=== PATIENT | male | born 1950 | race Caucasian/White ===

== ENCOUNTER → 2017-01-16 | Outpatient (CLI) | payer MEDICARE ==
--- NOTE | 2017-01-16 10:27 | RADIOLOGY REPORT (SQ) ---
EXAM DESCRIPTION: CT LUNG CANCER SCREENING COMPLETED DATE/TIME: 01/16/2017 10:04 am REASON FOR STUDY: NICOTINE DEPENDENCE (F17.200) F17.200 NICOTINE DEPENDENCE, UNSPECIFIED, UNCOMPLIC ATED Has the patient had a Chest CT scan within the past year? No. Was the patient offered tobacco cessation counseling? Yes. Was the patient engaged in shared decision making for this test? Yes. Does the patient have signs or symptoms of Lung Cancer? No. Is the patient a smoker? Yes. How many packs per year? 365. How many years since quitting smoking? Current smoker. Patients age: 66. COMPARISON: None. TECHNIQUE: Low Dose CT scan performed of the chest without intravenous contrast for purposes of scre ening for lung cancer. Images reviewed with lung, soft tissue and bone windows. Reconstructed coron al and sagittal MPR images reviewed. All images stored on PACS. All CT scanners at this facility use dose modulation, iterative reconstruction, and/or weight based d osing when appropriate to reduce radiation dose to as low as reasonably achievable (ALARA). [facility]: Dose Right [facility]: CareDose [facility]: Dose Right [facility]: Teradose 4D [facility]: iCracked RADIATION DOSE: Up-to-date CT equipment and radiation dose reduction techniques were employed. CTDIv ol: 2.1 mGy. DLP: 85 mGy-cm. mGy. . LIMITATIONS: None FINDINGS: LUNGS AND PLEURA: No masses or nodules. No pleural effusions or calcifications. No pne umothorax. No scarring or interstitial changes. HILAR AND MEDIASTINAL STRUCTURES: No identified masses. No abnormal nodes. HEART AND VASCULAR STRUCTURES: No aortic aneurysm. No pericardial effusion. No cardiac devices. CORONARY ARTERY CALCIFICATIONS: Mild to moderate calcifications. UPPER ABDOMEN, THYROID, BONES, OTHER SOFT TISSUES: No significant findings. IMPRESSION: NO SIGNIFICANT FINDING IN THE LUNGS ON NON-CONTRASTED CHEST CT. NO OTHER CLINICALLY SIGNIFICANT/POTENTIALLY CLINICALLY SIGNIFICANT FINDINGS LUNGRADS: LUNGRADS: 1 NEGATIVE. NO NODULES, OR DEFINITELY BENIGN NODULES MODIFIER: NONE RECOMMENDATION: Continue annual screening with LDCT in 12 months. COMMENT: CRITERIA: No lung nodules. Nodules with specific calcifications: Complete, central, popcorn, concentric rings and fat containin g nodules. TECHNICAL DOCUMENTATION: JOB ID: [id number] Quality ID # [id number]: Final reports with documentation of one or more dose reduction techniques (e.g., Au tomated exposure control, adjustment of the mA and/or kV according to patient size, use of iterative reconstruction technique) 2010 [employer]
== END ==
LOC: RAD 09:23
PROVIDERS: ATTEND Family Medicine
DX: F17.200 Nicotine dependence, unspecified, uncomplicated (principal)
CPT/HCPCS: G0297

== ENCOUNTER 2017-02-15 04:27 | Inpatient (IN) | payer MEDICARE ==
[2017-02-15 04:58] LABS: ABSOLUTE LYMPHOCYTES (AUTO) 0.6 10^3/uL (0.5-4.7); ABSOLUTE MONOCYTES (AUTO) 0.9 10^3/uL (0.1-1.4); ABSOLUTE NEUT (AUTO) 4.6 10^3/uL (1.7-8.2); BASOPHILS % (AUTO) 0.4 % (0-2); EOSINOPHILS % (AUTO) 0.1 % (0-6); HEMATOCRIT 47.9 % (37.9-51.0); HEMOGLOBIN 15.7 g/dL (13.5-17.0); HGB HCT DIFFERENCE -0.8; LYMPHOCYTES % (AUTO) 9.6 % (13-45); MEAN CORPUSCULAR HEMOGLOBIN 26.5 pg (27.0-33.4); MEAN CORPUSCULAR HGB CONC 32.7 g/dL (32.0-36.0); MEAN CORPUSCULAR VOLUME 81 fl (80-97); MONOCYTES % (AUTO) 15.2 % (3-13); RED BLOOD COUNT 5.91 10^6/uL (4.35-5.55); RED CELL DISTRIBUTION WIDTH 15.6 % (11.5-14.0); SEGMENTED NEUTROPHILS % (AUTO) 74.7 % (42-78); WHITE BLOOD COUNT 6.2 10^3/uL (4.0-10.5)
--- NOTE | 2017-02-15 05:02 | ER Document Report ---
ED General - General Chief Complaint: Fall Stated Complaint: FALL/LEG NUMBNESS Time Seen by Provider: 02/15/17 05:01 TRAVEL OUTSIDE OF THE [place] IN LAST 30 DAYS: No - Related Data Allergies/Adverse Reactions: No Known Allergies Allergy (Verified 02/15/17 04:27) Past Medical History - Social History Family History: Reviewed & Not Pertinent - Past Medical History Cardiac Medical History: Reports: Hx Heart Attack, Hx Hypertension Renal/ Medical History: Denies: Hx Peritoneal Dialysis Past Surgical History: Reports: Hx Abdominal Surgery - Gastric bypass, Hx Neurologic Surgery - laminectomy, Hx Orthopedic Surgery - carpel tunnel - Immunizations Hx Diphtheria, Pertussis, Tetanus Vaccination: Yes Physical Exam - Vital signs Vitals: Pulse Resp BP Pulse Ox 57 L 20 83/63 L 98 02/15/17 04:28 02/15/17 04:28 02/15/17 04:28 02/15/17 04:28 Course - Vital Signs Vital signs: Temp Pulse Resp BP Pulse Ox 57 L 20 83/63 L 98 02/15/17 04:28 02/15/17 04:28 02/15/17 04:28 02/15/17 04:28 - Laboratory Result Diagrams: 02/15/17 04:46 02/15/17 04:46 Laboratory results interpreted by me: 02/15/17 02/15/17 02/15/17 04:46 04:46 04:46 RBC 5.91 H MCH 26.5 L RDW 15.6 H Lymphocytes % 9.6 L Monocytes % 15.2 H VBG pCO2 VBG HCO3 Sodium 128.0 L Potassium 3.3 L Chloride 88 L BUN 54 H Creatinine 3.31 H Est GFR ( Amer) 23 L Est GFR (Non-Af Amer) 19 L Glucose 161 H Lactic Acid 2.9 H Direct Bilirubin 0.6 H 02/15/17 05:00 RBC MCH RDW Lymphocytes % Monocytes % VBG pCO2 30.5 L VBG HCO3 17.2 L Sodium Potassium Chloride BUN Creatinine Est GFR ( Amer) Est GFR (Non-Af Amer) Glucose Lactic Acid Direct Bilirubin - EKG Interpretation by Me Additional EKG results interpreted by me: 02/15/17 05:02 02/15/17 05:52
--- NOTE | 2017-02-15 05:20 | RADIOLOGY REPORT (SQ) ---
EXAM DESCRIPTION: CHEST SINGLE VIEW COMPLETED DATE/TIME: 02/15/2017 5:09 am REASON FOR STUDY: syncope COMPARISON: None. EXAM PARAMETERS: NUMBER OF VIEWS: One view. TECHNIQUE: Single frontal radiographic view of the chest acquired. RADIATION DOSE: NA LIMITATIONS: None. FINDINGS: LUNGS AND PLEURA: No opacities, masses or pneumothorax. No pleural effusion. MEDIASTINUM AND HILAR STRUCTURES: No masses. Contour normal. HEART AND VASCULAR STRUCTURES: Heart normal in size. Normal vasculature. BONES: No acute findings. Moderate disc desiccation. HARDWARE: None in the chest. OTHER: No other significant finding. IMPRESSION: NO ACUTE RADIOGRAPHIC FINDING IN THE CHEST. TECHNICAL DOCUMENTATION: JOB ID: [id number]
[2017-02-15 05:25] LABS: ALANINE AMINOTRANSFERASE 31 U/L (21-72); ALBUMIN 3.7 g/dL (3.5-5.0); ALKALINE PHOSPHATASE 60 U/L (38-126); ANION GAP 18 (5-19); ASPARTATE AMINO TRANSFERASE 35 U/L (17-59); BILIRUBIN,DIRECT 0.6 mg/dL (0.0-0.4); BLOOD UREA NITROGEN 54 mg/dL (7-20); CALCIUM 8.7 mg/dL (8.4-10.2); CARBON DIOXIDE 22 mmol/L (22-30); CHLORIDE 88 mmol/L (98-107); CREATINE KINASE 109 U/L (55-170); CREATININE RESULT 3.31 mg/dL (0.52-1.25); GLUCOSE 161 mg/dL (75-110); POTASSIUM 3.3 mmol/L (3.6-5.0); TOTAL PROTEIN 6.7 g/dL (6.3-8.2)
[2017-02-15 05:35] LABS: VENOUS BLOOD BASE EXCESS -6.6 mmol/L; VENOUS BLOOD HCO3 17.2 mmol/L (20-32); VENOUS BLOOD PCO2 30.5 mmHg (35-63); VENOUS BLOOD PH 7.37 (7.30-7.42)
[2017-02-15 05:37] LABS: CREATINE KINASE MB 1.79 ng/mL (<4.55)
[2017-02-15 05:41] LABS: TROPONIN I 0.047 ng/mL
[2017-02-15] MEDS: NORMAL SALINE 1000 ML 1,000 ML IV PRN ×7 (05:49→16:34)
--- NOTE | 2017-02-15 05:55 | ER Document Report ---
Doctor's Note Notes: 02/15/17 05:52 I performed a quick triage evaluation on the patient when he first arrived. Patient is hypotensive but clinically looks very well. He says he has been passing out 3 times today. I suspect his passing out is because he is hypotensive. He has had diarrhea now for a week. Says is watery. He has had no associated abdominal pain. No chest pain. He has pain in the back of his head and upper neck from falling. He denies any other injuries other than mild pain in his left hip. He is been able to walk without difficulty. He has no history of renal failure. His have history of coronary disease and has one stent that was placed several years ago. Patient denies any recent antibiotic use other than he took 2 antibiotics he had at home when he was having the diarrhea. He says he only took 2 pills. He is unsure what the antibiotic is. Otherwise he has not been on antibiotics in last 2 months. He had a fever of 104.6 on Sunday. His fever resolved by Sunday. 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 No dissection history. Does have a history of gastric bypass surgery. He does not drink alcohol. He does smoke. On exam the patient clinically looks very well. Despite his hypotension he looks very comfortable and is in no distress. On exam he does have some pain to palpation behind the back of his head. He does not have really any pain in his neck except at the very base of his occiput. He has no pain to palpation of his abdomen. I did do a FAST exam and there is no free fluid in his abdomen. I do not see pericardial effusion at this time. His chest x-ray is normal. We will give him IV fluids to help with rehydration. Laboratory evaluation shows some acute renal failure but the remainder of labs are pending. 02/15/17 05:55 EKG is reviewed and interpreted by me. EKG shows atrial fibrillation with a rate of [address] segment elevation or depression. No ischemic T-wave inversions. QRS duration is slightly prolonged. QTc interval is prolonged. No old EKG available for comparison.
--- NOTE | 2017-02-15 06:06 | ER Document Report ---
ED General - General Chief Complaint: Fall Stated Complaint: FALL/LEG NUMBNESS Time Seen by Provider: 02/15/17 05:01 Mode of Arrival: Medic Information source: Patient Notes: 67-year-old male presents with complaints of 3-4 day duration of diarrhea fever yesterday generalized weakness multiple falls. Patient found hypotensive on arrival. Notes temperature was 104.3 yesterday Patient denies any other complaints TRAVEL OUTSIDE OF THE [place] IN LAST 30 DAYS: No - HPI Onset: Last week Onset/Duration: Persistent Quality of pain: Achy Severity: Mild Pain Level: 1 Associated symptoms: Diarrhea, Weakness Exacerbated by: Denies Relieved by: Denies Similar symptoms previously: No Recently seen / treated by doctor: No - Related Data Allergies/Adverse Reactions: No Known Allergies Allergy (Verified 02/15/17 04:27) Past Medical History - Social History Smoking Status: Never Smoker Cigarette use (# per day): No Chew tobacco use (# tins/day): No Smoking Education Provided: No Family History: Reviewed & Not Pertinent - Past Medical History Cardiac Medical History: Reports: Hx Heart Attack, Hx Hypertension Renal/ Medical History: Denies: Hx Peritoneal Dialysis Past Surgical History: Reports: Hx Abdominal Surgery - Gastric bypass, Hx Neurologic Surgery - laminectomy, Hx Orthopedic Surgery - carpel tunnel - Immunizations Hx Diphtheria, Pertussis, Tetanus Vaccination: Yes Review of Systems - Review of Systems Notes: REVIEW OF SYSTEMS: CONSTITUTIONAL : Admits to fever EENT: Denies eye, ear, throat, or mouth pain or symptoms. Denies nasal or sinus congestion or discharge. Denies throat, tongue, or mouth swelling or difficulty swallowing. CARDIOVASCULAR: Denies chest pain. Denies palpitations or racing or irregular heart beat. Denies ankle edema. RESPIRATORY: Denies cough, cold, or chest congestion. Denies shortness of breath, difficulty breathing, or wheezing. GASTROINTESTINAL: Admits diarrhea GENITOURINARY: Denies difficulty urinating, painful urination, burning, frequency, blood in urine, or discharge. MUSCULOSKELETAL: Denies back or neck pain or stiffness. Denies joint pain or swelling. SKIN: Denies rash, lesions or sores. HEMATOLOGIC : Denies easy bruising or bleeding. LYMPHATIC: Denies swollen, enlarged glands. NEUROLOGICAL: Admits to weakness PSYCHIATRIC: Denies anxiety or stress. Denies depression, suicidal ideation, or homicidal ideation. ALL OTHER SYSTEMS REVIEWED AND NEGATIVE. Dictation was performed using [employer] voice recognition software PHYSICAL EXAMINATION: GENERAL: Overall ill-appearing male quite hypotensive HEAD: Atraumatic, normocephalic. EYES: Pupils equal round and reactive to light, extraocular movements intact, sclera anicteric, conjunctiva are normal. ENT: Nares patent, oropharynx clear without exudates. Moist mucous membranes. NECK: Normal range of motion, supple without lymphadenopathy LUNGS: Breath sounds clear to auscultation bilaterally and equal. No wheezes rales or rhonchi. HEART: tachycardic, irregular rate and rythm ABDOMEN: Soft, nontender, nondistended abdomen. No guarding, no rebound. No masses appreciated. Musculoskeletal: Normal range of motion, no pitting or edema. No cyanosis. NEUROLOGICAL: Cranial nerves grossly intact. Normal speech, normal gait. Normal sensory, motor exams PSYCH: Normal mood, normal affect. SKIN: Warm, Dry, poor turgor, no rashes or lesions noted. Physical Exam - Vital signs Vitals: Pulse Resp BP Pulse Ox 57 L 20 83/63 L 98 02/15/17 04:28 02/15/17 04:28 02/15/17 04:28 02/15/17 04:28 Course - Re-evaluation Re-evalutation: 02/15/17 06:25 Patient is noted to be hypotensive and acute renal failure, I believe this is all secondary to fluid loss from the diarrhea Patient continues to be hypotensive after fluid boluses, I expect him to be severely dehydrated 02/15/17 07:41 - Vital Signs Vital signs: Temp Pulse Resp BP Pulse Ox 57 L 13 71/58 L 93 02/15/17 04:28 02/15/17 05:46 02/15/17 05:46 02/15/17 05:46 - Laboratory Result Diagrams: 02/15/17 04:46 02/15/17 04:46 Laboratory results interpreted by me: 02/15/17 02/15/17 02/15/17 04:46 04:46 04:46 RBC 5.91 H MCH 26.5 L RDW 15.6 H Lymphocytes % 9.6 L Monocytes % 15.2 H VBG pCO2 VBG HCO3 Sodium 128.0 L Potassium 3.3 L Chloride 88 L BUN 54 H Creatinine 3.31 H Est GFR ( Amer) 23 L Est GFR (Non-Af Amer) 19 L Glucose 161 H Lactic Acid 2.9 H Direct Bilirubin 0.6 H 02/15/17 05:00 RBC MCH RDW Lymphocytes % Monocytes % VBG pCO2 30.5 L VBG HCO3 17.2 L Sodium Potassium Chloride BUN Creatinine Est GFR ( Amer) Est GFR (Non-Af Amer) Glucose Lactic Acid Direct Bilirubin - Diagnostic Test Radiology reviewed: Image reviewed, Reports reviewed - No acute abnormality Procedures - Central Line Right Internal jugular Time completed: 07:11 Consent obtained: Yes Central line pre-insertion: Sterile PPE donned, Betadine prep applied, Sterile drapes applied Central line size (Fr.): 13 Central line lumen type: Triple Anesthetic type: 1% Lidocaine mL's of anesthesia: 10 Ultrasound guided: Yes CM at insertion site: 3 Line secured with sutures: Yes Central line post-insertion: Blood return from lumens, Biopatch applied, Sutured , Sterile dressing applied, Position confirmed w/ CXR Number of attempts: 1 Complications: No Critical Care Note - Critical Care Note Total time excluding time spent on procedures (mins): 45 Comments: 45 minutes of critical care time spent in direct contact evaluating and reevaluating the patient, treating symptoms, reviewing labs and studies and speaking with family and consultants excluding any procedures Discharge - Discharge Clinical Impression: Weakness Diarrhea Qualifiers: Diarrhea type: unspecified type Qualified Code(s): R19.7 - Diarrhea, unspecified Hypotension Qualifiers: Hypotension type: unspecified hypotension type Qualified Code(s): I95.9 - Hypotension, unspecified Acute renal failure Qualifiers: Acute renal failure type: unspecified Qualified Code(s): N17.9 - Acute kidney failure, unspecified Condition: Fair Disposition: ADMITTED INPATIENT Admitting Provider: Hospitalist Unit Admitted: [facility]
--- NOTE | 2017-02-15 06:22 | RADIOLOGY REPORT (SQ) ---
EXAM DESCRIPTION: CT HEAD WITHOUT COMPLETED DATE/TIME: 02/15/2017 6:12 am REASON FOR STUDY: trauma COMPARISON: None. TECHNIQUE: Axial images acquired through the brain without intravenous contrast. Images reviewed wi th bone, brain and subdural windows. Images stored on PACS. All CT scanners at this facility use dose modulation, iterative reconstruction, and/or weight based d osing when appropriate to reduce radiation dose to as low as reasonably achievable (ALARA). [facility]: Dose Right [facility]: CareDose [facility]: Dose Right [facility]: Teradose 4D [facility]: dscovered RADIATION DOSE: Up-to-date CT equipment and radiation dose reduction techniques were employed. CTDIv ol: 64.6 mGy. DLP: 1292 mGy-cm. mGy. LIMITATIONS: None. FINDINGS: VENTRICLES: Normal size and contour. CEREBRUM: No masses. No hemorrhage. No midline shift. Normal george/white matter differentiation. N o evidence for acute infarction. Mild white matter microangiopathy. CEREBELLUM: No masses. No hemorrhage. No alteration of density. No evidence for acute infarction. EXTRAAXIAL SPACES: No fluid collections. No masses. Atherosclerosis. ORBITS AND GLOBE: No intra- or extraconal masses. Normal contour of globe without masses. CALVARIUM: No fracture. PARANASAL SINUSES: No fluid or mucosal thickening. SOFT TISSUES: No mass or hematoma. OTHER: No other significant finding. IMPRESSION: No acute findings. TECHNICAL DOCUMENTATION: JOB ID: [id number] Quality ID # [id number]: Final reports with documentation of one or more dose reduction techniques (e.g., Au tomated exposure control, adjustment of the mA and/or kV according to patient size, use of iterative reconstruction technique) 2010 [employer]- All Rights Reserved
--- NOTE | 2017-02-15 06:27 | RADIOLOGY REPORT (SQ) ---
EXAM DESCRIPTION: CT CERVICAL SPINE WITHOUT COMPLETED DATE/TIME: 02/15/2017 6:12 am REASON FOR STUDY: trauma COMPARISON: 12/07/2010. TECHNIQUE: Axial images acquired through the cervical spine without intravenous contrast. Images re viewed with lung, soft tissue and bone windows. Reconstructed coronal and sagittal MPR images review ed. Images stored on PACS. All CT scanners at this facility use dose modulation, iterative reconstruction, and/or weight based d osing when appropriate to reduce radiation dose to as low as reasonably achievable (ALARA). [facility]: Dose Right [facility]: CareDose [facility]: Dose Right [facility]: Teradose 4D [facility]: [employer] RADIATION DOSE: Up-to-date CT equipment and radiation dose reduction techniques were employed. CTDIv ol: 15.6 mGy. DLP: 347 mGy-cm. mGy. LIMITATIONS: None. FINDINGS: ALIGNMENT: Anatomic. MINERALIZATION: Normal. VERTEBRAL BODIES: No fractures or dislocation. 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 DISCS: Moderate C5-C6 disc desiccation and bulge with rhek-dg-loedkyvv spinal and foraminal canal azul nosis. 0.4 cm chronic ossicular fragmentation at the posterior aspect of the C4-C5 disc increase com pared with prior exam, 12/07/2010 and associated small desiccated disc bulge contributing to mild spina l and foraminal canal compromise. FACETS, LATERAL MASSES, POSTERIOR ELEMENTS: Rrpe-gv-ilkpksqy spondylosis at the C4-C5 level, right mo re than left. With kogc-ea-rzwzxfyx bilateral C6 foraminal stenosis, left more than right. HARDWARE: None in the spine. VISUALIZED RIBS: No fractures. LUNG APICES AND SOFT TISSUES: No significant or acute findings. OTHER: Atherosclerosis. IMPRESSION: No acute findings. Moderate disc desiccation and spondylosis worse at the C5-C6 level c ausing gjec-gw-jghccagc spinal and foraminal canal stenoses. TECHNICAL DOCUMENTATION: JOB ID: [id number] Quality ID # [id number]: Final reports with documentation of one or more dose reduction techniques (e.g., Au tomated exposure control, adjustment of the mA and/or kV according to patient size, use of iterative reconstruction technique) 2010 [employer]- All Rights Reserved
[2017-02-15 06:30] LABS: PROTHROMBIN TIME 13.5 SEC (11.4-15.4)
--- NOTE | 2017-02-15 07:42 | RADIOLOGY REPORT (SQ) ---
EXAM DESCRIPTION: CHEST SINGLE VIEW COMPLETED DATE/TIME: 02/15/2017 7:23 am REASON FOR STUDY: post central line placement COMPARISON: 02/15/2017. EXAM PARAMETERS: NUMBER OF VIEWS: One view. TECHNIQUE: Single frontal radiographic view of the chest acquired. RADIATION DOSE: NA LIMITATIONS: None. FINDINGS: LUNGS AND PLEURA: No opacities, masses or pneumothorax. No pleural effusion. MEDIASTINUM AND HILAR STRUCTURES: No masses. Contour normal. HEART AND VASCULAR STRUCTURES: Heart normal in size. Normal vasculature. BONES: No acute findings. HARDWARE: Right internal jugular central line tip at the cavoatrial junction. OTHER: No other significant finding. IMPRESSION: NO ACUTE RADIOGRAPHIC FINDING IN THE CHEST. Right IJ line. TECHNICAL DOCUMENTATION: JOB ID: [id number]
[2017-02-15] MEDS ORDERED: ONDANSETRON HCL INJ/PF 4 MG/2 ML SDV IV PRN (08:48)
[2017-02-15] MEDS ORDERED: ACETAMINOPHEN 325 MG TABLET PO PRN (08:48)
--- NOTE | 2017-02-15 09:10 | PDOC H&P ---
History of Present Illness Admission Date/PCP: 02/15/17 07:47 Patient complains of: Syncopal episode History of Present Illness: LOBITO RODRÍGUEZ is a 67 year old male, with hypertension taking RODNEY inhibitor apparently developed diarrhea with abdominal cramping of 5 days duration. Diarrhea is watery in nature with no noted blood. It occurs about 10 times per day. The patient will just drink water to avoid getting dehydrated. Patient had a fever 2 days ago reportedly 104. Patient attributes to the diarrhea from eating crabs although the rest of the family did not have this symptom. There is no nausea or vomiting. No melena hematochezia or hematemesis reported. Yesterday the patient started to feel dizzy and he fell 3 times on the floor due to lightheadedness and dizziness. The last time he thinks he may have passed out. He was brought to the emergency room with systolic blood pressure in the 70s. 6 L of intravenous fluid was given and the patient's blood pressure normalized. Patient sodium was low at 128 as well as a potassium of 3.3. Patient was then referred for admission. Past Medical History Past Medical History: Medication reconciliation pending verification from the patient's pharmacist Cardiac Medical History: Reports: Coronary Artery Disease, Myocardial Infarction , Hypertension Endocrine Medical History: Reports: Obesity Past Surgical History Past Surgical History: Reports: Cardiac Catheterization, Gastric Bypass Surgery , Orthopedic Surgery - carpel tunnel Social History Information Source: Patient Smoking Status: Never Smoker Frequency of Alcohol Use: Rare Hx Recreational Drug Use: No Drugs: None Family History Family History: Other - Anemia Parental Family History Reviewed: Yes Children Family History Reviewed: Yes Sibling(s) Family History Reviewed.: Yes Medication/Allergy Home Medications: Coreg 3.125 mg Tablet 07/16/11 Plavix 75 mg Tablet 07/16/11 Ramipril 07/16/11 Oxycodone HCl/Acetaminophen [Percocet 5-325 mg Tablet] 1 - 2 tab PO Q4H PRN #25 tablet 12/12/14 Penicillin V Potassium [Penicillin Vk 500 mg Tablet] 500 mg PO QID #30 tablet Oxycodone HCl/Acetaminophen [Percocet 5-325 mg Tablet] 1 - 2 tab PO Q4H PRN #25 tablet 12/13/14 Allergies/Adverse Reactions: No Known Allergies Allergy (Verified 02/15/17 04:27) Review of Systems Constitutional: PRESENT: chills, fatigue, fever(s), weakness - Generalized. ABSENT: headache(s), night sweats, weight gain, weight loss Eyes: ABSENT: visual disturbances Ears: ABSENT: hearing changes Nose, Mouth, and Throat: ABSENT: mouth pain, sore throat Cardiovascular: ABSENT: chest pain, dyspnea on exertion, edema, orthropnea, palpitations Respiratory: ABSENT: cough, dyspnea, hemoptysis, sputum Gastrointestinal: PRESENT: abdominal pain, bloating, diarrhea. ABSENT: coffee ground emesis, constipation, hematemesis, hematochezia, melena, nausea, vomiting Genitourinary: ABSENT: difficulty urinating, dysuria, hematuria Musculoskeletal: ABSENT: joint swelling Integumentary: ABSENT: pruritus, rash, wounds Neurological: PRESENT: dizziness, syncope. ABSENT: abnormal gait, abnormal speech, confusion, focal weakness Psychiatric: ABSENT: anxiety, depression, homidical ideation, suicidal ideation Endocrine: ABSENT: cold intolerance, heat intolerance, polydipsia, polyuria Hematologic/Lymphatic: ABSENT: easy bleeding, easy bruising Physical Exam Vital Signs: Temp Pulse Resp BP Pulse Ox 57 L 13 71/58 L 93 02/15/17 04:28 02/15/17 05:46 02/15/17 05:46 02/15/17 05:46 General appearance: PRESENT: no acute distress, well-developed, well-nourished Head exam: PRESENT: atraumatic, normocephalic Eye exam: PRESENT: conjunctiva pink, EOMI, PERRLA. ABSENT: scleral icterus Ear exam: PRESENT: normal external ear exam Mouth exam: PRESENT: dry mucosa, neck supple, tongue midline Throat exam: ABSENT: post pharyngeal erythema, tonsillar erythema, tonsillar exudate Neck exam: ABSENT: carotid bruit, JVD, lymphadenopathy, thyromegaly Respiratory exam: PRESENT: clear to auscultation jeremías. ABSENT: rales, rhonchi, wheezes Cardiovascular exam: PRESENT: RRR. ABSENT: diastolic murmur, rubs, systolic murmur Pulses: PRESENT: normal dorsalis pedis pul Vascular exam: PRESENT: normal capillary refill GI/Abdominal exam: PRESENT: hyperactive bowel sounds, soft, tenderness - Minimal periumbilically. ABSENT: distended, guarding, mass, organolmegaly, rebound Rectal exam: PRESENT: deferred Extremities exam: PRESENT: full ROM. ABSENT: calf tenderness, clubbing, pedal edema Neurological exam: PRESENT: alert, awake, oriented to person, oriented to place , oriented to time, oriented to situation, CN II-XII grossly intact. ABSENT: motor sensory deficit Psychiatric exam: PRESENT: appropriate affect, normal mood. ABSENT: homicidal ideation, suicidal ideation Skin exam: PRESENT: dry, intact, warm. ABSENT: cyanosis, rash Results Impressions: Cervical Spine CT 02/15/17 05:51 IMPRESSION: No acute findings. Moderate disc desiccation and spondylosis worse at the C5-C6 level causing [id number] spinal and foraminal canal stenoses. Head CT 02/15/17 05:51 IMPRESSION: No acute findings. Chest X-Ray 02/15/17 07:11 IMPRESSION: NO ACUTE RADIOGRAPHIC FINDING IN THE CHEST. Right IJ line. Assessment & Plan - Diagnosis (1) Hypovolemic shock Is this a current diagnosis for this admission?: Yes (2) Acute renal failure Qualifiers: Acute renal failure type: unspecified Qualified Code(s): N17.9 - Acute kidney failure, unspecified Is this a current diagnosis for this admission?: Yes (3) Diarrhea Qualifiers: Diarrhea type: unspecified type Qualified Code(s): R19.7 - Diarrhea, unspecified Is this a current diagnosis for this admission?: Yes (4) Hyponatremia Is this a current diagnosis for this admission?: Yes (5) Hypokalemia Is this a current diagnosis for this admission?: Yes (6) Essential hypertension Is this a current diagnosis for this admission?: Yes (7) Coronary artery disease Qualifiers: Coronary Disease-Associated Artery/Lesion type: [place] artery [place] vs. transplanted heart: [place] heart Associated angina: with angina and documented spasm Qualified Code(s): I25.111 - Atherosclerotic heart disease of [place] coronary artery with angina pectoris with documented spasm Is this a current diagnosis for this admission?: Yes (8) Type 2 diabetes mellitus Qualifiers: Diabetes mellitus complication status: with unspecified complications Diabetes mellitus terminal superintendent insulin use: without correction use Qualified Code(s): E11.8 - Type 2 diabetes mellitus with unspecified complications; Z79.4 - shelter (current) use of insulin Is this a current diagnosis for this admission?: Yes (9) History of obesity Is this a current diagnosis for this admission?: Yes - Time Time Spent: 50 to 70 Minutes - Inpatient Certification Based on my medical assessment, after consideration of the patient's comorbidities, presenting symptoms, or acuity I expect that the services needed warrant INPATIENT care.: Yes I certify that my determination is in accordance with my understanding of Medicare's requirements for reasonable and necessary INPATIENT services [42 CFR 412.3e].: Yes Medical Necessity: Significant Comorbidiites Make Outpatient Treatment Too Risky , Need Close Monitoring Due to Risk of Patient Decompensation, Need For IV Fluids, Need for IV Antibiotics, Risk of Complication if Not Cared For in Hospital, Risk of Diagnosis Which Will Require Inpatient Eval/Care/Monitoring Post Hospital Care: D/C Hand [employer] Documentation - Plan Summary Plan Summary: The patient will be admitted to [facility]. Blood pressure has normalized after saline boluses in the emergency room. In the meantime I will hold the patient' s antihypertensive medications, replace potassium, obtain renal ultrasound. Cultures of the urine as well as the blood as well as stool will be done. We will also check for stool for Clostridium difficile. We will begin intravenous antibiotic for possible infectious colitis.. DVT prophylaxis with Lovenox will be given. Further testing depends on the initial evaluations outlined above.
[2017-02-15] MEDS ORDERED: ENOXAPARIN SODIUM INJ 30 MG/0.3 ML DISP.SYRIN SUBCUT SCH (09:15)
[2017-02-15] MEDS ORDERED: CLOPIDOGREL BISULFATE 75 MG TABLET PO SCH (10:00)
[2017-02-15] MEDS: CEFTRIAXONE 1 GM/D5W RTU 50 ML IV SCH (10:33)
[2017-02-15] MEDS: POTASSI CL 20 MEQ/50 ML RIDER 20 MEQ/50 ML RTUPB IV SCH ×2 (10:34→13:20)
[2017-02-15] MEDS: ENOXAPARIN SODIUM INJ 30 MG/0.3 ML DISP.SYRIN SUBCUT SCH (10:35)
[2017-02-15 11:06] LABS: THYROID STIMULATING HORMONE 0.28 uIU/mL (0.47-4.68)
[2017-02-15] MEDS: METRONIDAZOLE RTU 500 MG/NS 100 ML IV SCH ×3 (13:21→23:50)
--- NOTE | 2017-02-15 13:23 | EKG REPORT ---
SEVERITY:- ABNORMAL ECG - ATRIAL FIBRILLATION NONSPECIFIC INTRAVENTRICULAR CONDUCTION DELAY CONSIDER ANTERIOR INFARCT MINIMAL ST DEPRESSION, INFERIOR LEADS : Confirmed by: Willis Burrell 15-Feb-2017 13:23:10
--- NOTE | 2017-02-15 14:31 | RADIOLOGY REPORT (SQ) ---
EXAM DESCRIPTION: U/S RETROPERITON (RENAL/AORTA) COMPLETED DATE/TIME: 02/15/2017 1:17 pm REASON FOR STUDY: Acute renal failure COMPARISON: None. TECHNIQUE: Dynamic and static grayscale images acquired of the kidneys and bladder and recorded on P ACS. Additional selected color Doppler and spectral images recorded. LIMITATIONS: None. FINDINGS: RIGHT KIDNEY: Normal size, 12.5 cm. Normal echogenicity. No solid or suspicious masses. T here is a parapelvic cyst measuring 48 x 39 x 36 mm. No hydronephrosis. No calcifications. LEFT KIDNEY: Normal size, 11.9 cm. Normal echogenicity. No solid or suspicious masses. No hydronephr osis. No calcifications. BLADDER: No masses. Ureteral jets were not seen. OTHER FINDINGS: No other significant finding. IMPRESSION: Prominent parapelvic cyst in the right kidney. The study is otherwise normal. TECHNICAL DOCUMENTATION: JOB ID: [id number] [employer]- All Rights Reserved
[2017-02-15] MEDS: ATORVASTATIN CALCIUM 20 MG TABLET PO SCH (21:31)
[2017-02-15] MEDS: TRAZODONE HCL 50 MG TABLET PO SCH (21:32)
[2017-02-15] MEDS: GABAPENTIN 300 MG CAPSULE PO SCH (21:32)
[2017-02-15 22:47] LABS: APPEARANCE,URINE CLEAR; BILIRUBIN,URINE NEGATIVE (NEGATIVE); GLUCOSE, URINE NEGATIVE (NEGATIVE); KETONES,URINE NEGATIVE (NEGATIVE); LEUKOCYTE ESTERASE,URINE NEGATIVE (NEGATIVE); NITRITE,URINE NEGATIVE (NEGATIVE); PROTEIN,URINE NEGATIVE (NEGATIVE); URINE SPECIFIC GRAVITY 1.009; UROBILINOGEN,URINE NEGATIVE mg/dL (<2.0)
[2017-02-15] MEDS: OXYCODONE-ACETAMINOPHEN 5-325 MG TABLET PO SCH (23:48)
[2017-02-15] MEDS: OXYCODONE HCL IR 5 MG TABLET PO SCH (23:49)
[2017-02-16] MEDS ORDERED: (PENDING PHARMACY ID) (Oxycodone Hcl/Acetaminophen [Percocet 10-325 Mg Tablet] 1 EACH) PO SCH
[2017-02-16 04:57] LABS: HEMATOCRIT 38.2 % (37.9-51.0); HGB HCT DIFFERENCE -0.1; MEAN CORPUSCULAR HEMOGLOBIN 27.1 pg (27.0-33.4); MEAN CORPUSCULAR HGB CONC 33.2 g/dL (32.0-36.0); MEAN CORPUSCULAR VOLUME 82 fl (80-97); RED BLOOD COUNT 4.69 10^6/uL (4.35-5.55); RED CELL DISTRIBUTION WIDTH 16.4 % (11.5-14.0); WHITE BLOOD COUNT 3.7 10^3/uL (4.0-10.5)
[2017-02-16 05:00] LABS: HEMOGLOBIN 12.7 g/dL (13.5-17.0)
[2017-02-16] MEDS: OXYCODONE-ACETAMINOPHEN 5-325 MG TABLET PO SCH ×4 (05:27→23:58)
[2017-02-16] MEDS: OXYCODONE HCL IR 5 MG TABLET PO SCH ×4 (05:27→23:58)
[2017-02-16] MEDS: LANSOPRAZOLE 30 MG TAB.RAP.DR PO SCH (05:27)
[2017-02-16] MEDS: METRONIDAZOLE RTU 500 MG/NS 100 ML IV SCH ×4 (05:28→23:52)
[2017-02-16] MEDS: NORMAL SALINE 1000 ML 1,000 ML IV PRN (05:28)
[2017-02-16 05:38] LABS: ANION GAP 9 (5-19); BLOOD UREA NITROGEN 30 mg/dL (7-20); CALCIUM 7.4 mg/dL (8.4-10.2); CARBON DIOXIDE 17 mmol/L (22-30); CHLORIDE 111 mmol/L (98-107); CREATININE RESULT 1.43 mg/dL (0.52-1.25); GLUCOSE 91 mg/dL (75-110); MAGNESIUM 2.2 mg/dL (1.6-2.3); PHOSPHORUS 2.1 mg/dL (2.5-4.5); SODIUM 137.2 mmol/L (137-145)
[2017-02-16 05:41] LABS: POTASSIUM 2.6 mmol/L (3.6-5.0)
[2017-02-16] MEDS ORDERED: POTASSI CL 20 MEQ/D5NS 1L 1,000 ML IV PRN (06:09)
[2017-02-16] MEDS: POTASSI CL 20 MEQ/50 ML RIDER 20 MEQ/50 ML RTUPB IV SCH ×3 (06:33→10:41)
[2017-02-16] MEDS: CEFTRIAXONE 1 GM/D5W RTU 50 ML IV SCH (10:38)
[2017-02-16] MEDS: GABAPENTIN 300 MG CAPSULE PO SCH ×2 (10:40→21:13)
[2017-02-16] MEDS: ASPIRIN 81 MG TABLET, CHEWABLE PO SCH (10:40)
[2017-02-16] MEDS: ENOXAPARIN SODIUM INJ 30 MG/0.3 ML DISP.SYRIN SUBCUT SCH (10:42)
--- NOTE | 2017-02-16 10:53 | PDOC PROGRESS REPORT ---
Subjective Progress Note for:: 02/16/17 Subjective:: Diarrhea is less. Denies any nausea or vomiting. There is no chills or fever. No chest pain or shortness of breath, no paroxysmal nocturnal dyspnea nor orthopnea. No diarrhea at this time. Overall diarrhea she has been less. Physical Exam Vital Signs: Temp Pulse Resp BP Pulse Ox 97.5 F 76 20 100/66 97 02/16/17 07:54 02/16/17 07:54 02/16/17 07:54 02/16/17 07:54 02/16/17 07:54 Intake & Output 02/15/17 02/16/17 02/17/17 06:59 06:59 06:59 Intake Total 2297 Balance 2297 Weight 91.6 kg General appearance: PRESENT: no acute distress, cooperative Head exam: PRESENT: normocephalic Eye exam: PRESENT: EOMI Mouth exam: PRESENT: moist, neck supple Neck exam: ABSENT: JVD Respiratory exam: PRESENT: clear to auscultation jeremías. ABSENT: rhonchi, wheezes Cardiovascular exam: PRESENT: RRR. ABSENT: gallop GI/Abdominal exam: PRESENT: normal bowel sounds, soft. ABSENT: distended, tenderness Extremities exam: ABSENT: pedal edema Neurological exam: PRESENT: altered, oriented to person, oriented to place, oriented to time, oriented to situation, reflexes normal Skin exam: PRESENT: dry, warm. ABSENT: cyanosis Results Laboratory Results: 02/16/17 04:22 02/16/17 05:18 02/15/17 02/15/17 02/16/17 10:14 22:00 04:22 WBC 3.7 L RBC 4.69 Hgb 12.7 L D Hct 38.2 MCV 82 MCH 27.1 MCHC 33.2 RDW 16.4 H Plt Count 116 L Sodium Potassium Chloride Carbon Dioxide Anion Gap BUN Creatinine Est GFR ( Amer) Est GFR (Non-Af Amer) Glucose Calcium Phosphorus Magnesium TSH 0.28 L Free T4 2.03 Urine Color YELLOW Urine Appearance CLEAR Urine pH 5.0 Ur Specific [place] 1.009 Urine Protein NEGATIVE Urine Glucose (UA) NEGATIVE Urine Ketones NEGATIVE Urine Blood SMALL H Urine Nitrite NEGATIVE Ur Leukocyte Esterase NEGATIVE Urine WBC (Auto) 2 Urine RBC (Auto) 1 02/16/17 02/16/17 04:22 05:18 WBC RBC Hgb Hct MCV MCH MCHC RDW Plt Count Sodium Cancelled 137.2 Potassium Cancelled 2.6 L* Chloride Cancelled 111 H Carbon Dioxide Cancelled 17 L Anion Gap Cancelled 9 BUN Cancelled 30 H Creatinine Cancelled 1.43 H Est GFR ( Amer) Cancelled > 60 Est GFR (Non-Af Amer) Cancelled 50 L Glucose Cancelled 91 Calcium Cancelled 7.4 L Phosphorus Cancelled 2.1 L Magnesium Cancelled 2.2 TSH Free T4 Urine Color Urine Appearance Urine pH Ur Specific [place] Urine Protein Urine Glucose (UA) Urine Ketones Urine Blood Urine Nitrite Ur Leukocyte Esterase Urine WBC (Auto) Urine RBC (Auto) Impressions: Renal Ultrasound 02/15/17 00:00 IMPRESSION: Prominent parapelvic cyst in the right kidney. The study is otherwise normal. Cervical Spine CT 02/15/17 05:51 IMPRESSION: No acute findings. Moderate disc desiccation and spondylosis worse at the C5-C6 level causing [id number] spinal and foraminal canal stenoses. Head CT 02/15/17 05:51 IMPRESSION: No acute findings. Chest X-Ray 02/15/17 07:11 IMPRESSION: NO ACUTE RADIOGRAPHIC FINDING IN THE CHEST. Right IJ line. Assessment & Plan - Diagnosis (1) Hypovolemic shock Is this a current diagnosis for this admission?: Yes (2) Acute renal failure Qualifiers: Acute renal failure type: unspecified Qualified Code(s): N17.9 - Acute kidney failure, unspecified Is this a current diagnosis for this admission?: Yes (3) Diarrhea Qualifiers: Diarrhea type: unspecified type Qualified Code(s): R19.7 - Diarrhea, unspecified Is this a current diagnosis for this admission?: Yes (4) Hyponatremia Is this a current diagnosis for this admission?: Yes (5) Hypokalemia Is this a current diagnosis for this admission?: Yes (6) Essential hypertension Is this a current diagnosis for this admission?: Yes (7) Coronary artery disease Qualifiers: Coronary Disease-Associated Artery/Lesion type: [place] artery [place] vs. transplanted heart: [place] heart Associated angina: with angina and documented spasm Qualified Code(s): I25.111 - Atherosclerotic heart disease of [place] coronary artery with angina pectoris with documented spasm Is this a current diagnosis for this admission?: Yes (8) Type 2 diabetes mellitus Qualifiers: Diabetes mellitus complication status: with unspecified complications Diabetes mellitus [facility] insulin use: without [facility] use Qualified Code(s): E11.8 - Type 2 diabetes mellitus with unspecified complications; Z79.4 - terminal operator (current) use of insulin Is this a current diagnosis for this admission?: Yes (9) History of obesity Is this a current diagnosis for this admission?: Yes - Time Time Spent with patient: 25-34 minutes - Plan Summary Plan Summary: Patient clinically improved. Continue hydration but decrease rate and recheck creatinine in the morning. Continue antibiotics and follow cultures. Cont. supportive care. If patient continues to improve by the morning we will discharge home.
[2017-02-16 16:49] LABS: ANION GAP 8 (5-19); BLOOD UREA NITROGEN 23 mg/dL (7-20); CALCIUM 7.6 mg/dL (8.4-10.2); CARBON DIOXIDE 18 mmol/L (22-30); CHLORIDE 110 mmol/L (98-107); CREATININE RESULT 1.19 mg/dL (0.52-1.25); GLUCOSE 90 mg/dL (75-110); MAGNESIUM 2.1 mg/dL (1.6-2.3); SODIUM 136.3 mmol/L (137-145)
[2017-02-16 16:57] LABS: POTASSIUM 2.7 mmol/L (3.6-5.0)
[2017-02-16] MEDS ORDERED: LOPERAMIDE HCL 2 MG CAPSULE PO PRN (17:24)
[2017-02-16] MEDS ORDERED: POTASSIUM CHLORIDE 10 MEQ TABLET.SA PO ONE ×3 (17:26→22:00)
[2017-02-16] MEDS: NICOTINE 21 MG/24 HR PATCH.TD24 TD SCH ×2 (17:28→20:32)
[2017-02-16] MEDS: POTASSI CL 20 MEQ/D5NS 1L 1,000 ML IV PRN (18:27)
[2017-02-16] MEDS: ATORVASTATIN CALCIUM 20 MG TABLET PO SCH (21:13)
[2017-02-16] MEDS: TRAZODONE HCL 50 MG TABLET PO SCH (21:13)
[2017-02-17] MEDS: OXYCODONE-ACETAMINOPHEN 5-325 MG TABLET PO SCH ×4 (03:19→23:31)
[2017-02-17] MEDS: OXYCODONE HCL IR 5 MG TABLET PO SCH ×4 (03:20→23:31)
[2017-02-17] MEDS: POTASSI CL 20 MEQ/D5NS 1L 1,000 ML IV PRN ×2 (04:29→17:32)
[2017-02-17 04:47] LABS: ANION GAP 9 (5-19); BLOOD UREA NITROGEN 15 mg/dL (7-20); CALCIUM 7.8 mg/dL (8.4-10.2); CARBON DIOXIDE 17 mmol/L (22-30); CHLORIDE 113 mmol/L (98-107); CREATININE RESULT 1.11 mg/dL (0.52-1.25); GLUCOSE 100 mg/dL (75-110); SODIUM 138.6 mmol/L (137-145)
[2017-02-17 04:50] LABS: POTASSIUM 2.9 mmol/L (3.6-5.0)
[2017-02-17] MEDS: LANSOPRAZOLE 30 MG TAB.RAP.DR PO SCH (05:17)
[2017-02-17] MEDS: POTASSIUM CHLORIDE 20 MEQ/15 ML UDCUP PO SCH ×6 (05:17→18:02)
[2017-02-17] MEDS: METRONIDAZOLE RTU 500 MG/NS 100 ML IV SCH (05:18)
[2017-02-17 05:33] LABS: ADD ON TESTING BLD IN LAB ACKNOWLEDGE
--- NOTE | 2017-02-17 09:51 | PDOC PROGRESS REPORT ---
Subjective Progress Note for:: 02/17/17 Subjective:: Still having diarrhea. Denies chills or fever. No shortness of breath or chest pain. No nausea or vomiting. Appetite is good. No melena or hematochezia noted. No dizziness or near syncope nor syncope. Physical Exam Vital Signs: Temp Pulse Resp BP Pulse Ox 97.7 F 69 18 130/67 H 98 02/17/17 07:30 02/17/17 07:30 02/17/17 07:30 02/17/17 07:30 02/17/17 07:30 Intake & Output 02/16/17 02/17/17 02/18/17 06:59 06:59 06:59 Intake Total 2297 4934 Balance 2297 4934 Weight 91.6 kg 93.1 kg General appearance: PRESENT: no acute distress, cooperative Head exam: PRESENT: normocephalic Eye exam: PRESENT: EOMI Mouth exam: PRESENT: moist, neck supple Neck exam: ABSENT: JVD Respiratory exam: PRESENT: clear to auscultation jeremías. ABSENT: rhonchi, wheezes Cardiovascular exam: PRESENT: RRR. ABSENT: gallop GI/Abdominal exam: PRESENT: hyperactive bowel sounds, soft. ABSENT: distended Extremities exam: ABSENT: pedal edema Neurological exam: PRESENT: alert, awake, oriented to person, oriented to place , oriented to time, oriented to situation Skin exam: PRESENT: dry, warm. ABSENT: cyanosis Results Laboratory Results: 02/16/17 04:22 02/17/17 04:05 02/16/17 02/17/17 02/17/17 16:21 04:05 04:05 Sodium 136.3 L 138.6 Potassium 2.7 L* 2.9 L* Chloride 110 H 113 H Carbon Dioxide 18 L 17 L Anion Gap 8 9 BUN 23 H 15 Creatinine 1.19 1.11 Est GFR ( Amer) > 60 > 60 Est GFR (Non-Af Amer) > 60 > 60 Glucose 90 100 Calcium 7.6 L 7.8 L Magnesium 2.1 2.0 Impressions: Renal Ultrasound 02/15/17 00:00 IMPRESSION: Prominent parapelvic cyst in the right kidney. The study is otherwise normal. Cervical Spine CT 02/15/17 05:51 IMPRESSION: No acute findings. Moderate disc desiccation and spondylosis worse at the C5-C6 level causing [id number] spinal and foraminal canal stenoses. Head CT 02/15/17 05:51 IMPRESSION: No acute findings. Chest X-Ray 02/15/17 07:11 IMPRESSION: NO ACUTE RADIOGRAPHIC FINDING IN THE CHEST. Right IJ line. Assessment & Plan - Diagnosis (1) Hypovolemic shock Is this a current diagnosis for this admission?: Yes (2) Acute renal failure Qualifiers: Acute renal failure type: unspecified Qualified Code(s): N17.9 - Acute kidney failure, unspecified Is this a current diagnosis for this admission?: Yes (3) Diarrhea Qualifiers: Diarrhea type: unspecified type Qualified Code(s): R19.7 - Diarrhea, unspecified Is this a current diagnosis for this admission?: Yes (4) Hyponatremia Is this a current diagnosis for this admission?: Yes (5) Hypokalemia Is this a current diagnosis for this admission?: Yes (6) Essential hypertension Is this a current diagnosis for this admission?: Yes (7) Coronary artery disease Qualifiers: Coronary Disease-Associated Artery/Lesion type: [place] artery [place] vs. transplanted heart: [place] heart Associated angina: with angina and documented spasm Qualified Code(s): I25.111 - Atherosclerotic heart disease of [place] coronary artery with angina pectoris with documented spasm Is this a current diagnosis for this admission?: Yes (8) Type 2 diabetes mellitus Qualifiers: Diabetes mellitus complication status: with unspecified complications Diabetes mellitus halfway insulin use: without superintendent marine [employer] terminal use Qualified Code(s): E11.8 - Type 2 diabetes mellitus with unspecified complications; Z79.4 - [facility] (current) use of insulin Is this a current diagnosis for this admission?: Yes (9) History of obesity Is this a current diagnosis for this admission?: Yes - Time Time Spent with patient: 25-34 minutes - Plan Summary Plan Summary: Patient continues to have diarrhea, we will discontinue Imodium and continue hydration. Replace potassium and monitor electrolytes. Transition to oral antibiotics for colitis. Obtain a CT of the abdomen and pelvis. Continue supportive care.
[2017-02-17] MEDS: LEVOFLOXACIN 750 MG TABLET PO SCH (10:30)
[2017-02-17] MEDS ORDERED: METRONIDAZOLE 500 MG TABLET PO ONE (10:30)
[2017-02-17] MEDS: ENOXAPARIN SODIUM INJ 30 MG/0.3 ML DISP.SYRIN SUBCUT SCH (10:30)
[2017-02-17] MEDS: ASPIRIN 81 MG TABLET, CHEWABLE PO SCH (10:31)
[2017-02-17] MEDS: GABAPENTIN 300 MG CAPSULE PO SCH ×2 (10:31→21:15)
[2017-02-17] MEDS: METRONIDAZOLE 500 MG TABLET PO SCH ×3 (12:06→23:30)
[2017-02-17] MEDS ORDERED: METRONIDAZOLE 500 MG TABLET PO SCH (15:00)
[2017-02-17] MEDS ORDERED: ACARBOSE 50 MG TABLET PO ONE (17:30)
[2017-02-17] MEDS ORDERED: ACARBOSE 50 MG TABLET ONE (18:02)
--- NOTE | 2017-02-17 18:54 | RADIOLOGY REPORT (SQ) ---
EXAM DESCRIPTION: CT ABD/PELVIS ORAL ONLY COMPLETED DATE/TIME: 02/17/2017 2:04 pm REASON FOR STUDY: abdominal pain, diarrhea COMPARISON: None. TECHNIQUE: CT scan of the abdomen and pelvis performed without intravenous or oral contrast. Images reviewed with lung, soft tissue, and bone windows. Reconstructed coronal and sagittal MPR images revi ewed. All images stored on PACS. All CT scanners at this facility use dose modulation, iterative reconstruction, and/or weight based d osing when appropriate to reduce radiation dose to as low as reasonably achievable (ALARA). [facility]: Dose Right [facility]: CareDose [facility]: Dose Right [facility]: Teradose 4D [facility]: Smart SCYNEXIS RADIATION DOSE: Up-to-date CT equipment and radiation dose reduction techniques were employed. CTDIv ol: 11.4 mGy. DLP: 609 mGy-cm.mGy. LIMITATIONS: None. FINDINGS: LOWER CHEST: No significant findings. No nodules or infiltrates. NON-CONTRASTED LIVER, SPLEEN, ADRENALS: Evaluation limited by lack of IV contrast. No identified sign ificant masses. PANCREAS: No masses. No peripancreatic inflammatory changes. GALLBLADDER: There is a gallstone. No surrounding inflammation. RIGHT KIDNEY AND URETER: No suspicious masses. Assessment limited by lack of IV contrast. No signif icant calcifications. No hydronephrosis or hydroureter. LEFT KIDNEY AND URETER: No suspicious masses. Assessment limited by lack of IV contrast. No signifi cant calcifications. No hydronephrosis or hydroureter. AORTA AND RETROPERITONEUM: No aneurysm. No retroperitoneal masses or adenopathy. BOWEL AND PERITONEAL CAVITY: There is mild small bowel distention. No evidence of obstruction. The transverse colonic wall appears thickened raising possibility of colitis. The cecum is unremarkable. Descending colon is incompletely opacified. There are short segments of small bowel wall thickenin g in the pelvis. There are scattered mildly prominent mesenteric lymph nodes. No focal inflammatory change or fluid collections. APPENDIX: Not visualized. PELVIS, BLADDER, AND ABDOMINAL WALL:No abnormal masses. No free fluid. Bladder normal. BONES: No significant findings. OTHER: No other significant finding. IMPRESSION: 1. Thickening of the transverse colonic wall colitis cannot be excluded. 2. Mild small-bowel distention but no evidence of obstruction. The are areas in the pelvis with air appears to be small bowel wall thickening. This may be secondary to focal enteritis. No focal infl ammatory changes. There are scattered prominent mesenteric lymph nodes. TECHNICAL DOCUMENTATION: JOB ID: [id number] Quality ID # [id number]: Final reports with documentation of one or more dose reduction techniques (e.g., Au tomated exposure control, adjustment of the mA and/or kV according to patient size, use of iterative reconstruction technique) 2010 [employer]- All Rights Reserved
[2017-02-17] MEDS: NICOTINE 21 MG/24 HR PATCH.TD24 TD SCH (20:17)
[2017-02-17] MEDS: ATORVASTATIN CALCIUM 20 MG TABLET PO SCH (21:14)
[2017-02-17] MEDS: TRAZODONE HCL 50 MG TABLET PO SCH (21:15)
[2017-02-18 04:45] LABS: ANION GAP 6 (5-19); BLOOD UREA NITROGEN 8 mg/dL (7-20); CALCIUM 7.9 mg/dL (8.4-10.2); CARBON DIOXIDE 18 mmol/L (22-30); CHLORIDE 117 mmol/L (98-107); CREATININE RESULT 0.92 mg/dL (0.52-1.25); GLUCOSE 91 mg/dL (75-110); POTASSIUM 3.8 mmol/L (3.6-5.0); SODIUM 140.9 mmol/L (137-145)
[2017-02-18] MEDS: METRONIDAZOLE 500 MG TABLET PO SCH ×2 (05:47→11:03)
[2017-02-18] MEDS: OXYCODONE-ACETAMINOPHEN 5-325 MG TABLET PO SCH ×2 (05:48→11:02)
[2017-02-18] MEDS: OXYCODONE HCL IR 5 MG TABLET PO SCH ×2 (05:48→11:04)
[2017-02-18] MEDS: LANSOPRAZOLE 30 MG TAB.RAP.DR PO SCH (05:48)
[2017-02-18 07:54] VITALS: BP 148/73
[2017-02-18] MEDS: ACARBOSE 50 MG TABLET PO SCH ×2 (09:59→11:01)
--- NOTE | 2017-02-18 09:59 | PDOC DISCHARGE SUMMARY ---
General - Admit/Disc Date/PCP Admission Date/Primary Care Provider: 02/15/17 08:48 Discharge Date: 02/18/17 - Discharge Diagnosis (1) Hypovolemic shock Is this a current diagnosis for this admission?: Yes (2) Acute renal failure Is this a current diagnosis for this admission?: Yes (3) Diarrhea Is this a current diagnosis for this admission?: Yes (4) Hyponatremia Is this a current diagnosis for this admission?: Yes (5) Hypokalemia Is this a current diagnosis for this admission?: Yes (6) Essential hypertension Is this a current diagnosis for this admission?: Yes (7) Coronary artery disease Is this a current diagnosis for this admission?: Yes (8) Type 2 diabetes mellitus Is this a current diagnosis for this admission?: Yes (9) History of obesity Is this a current diagnosis for this admission?: Yes - Additional Information Resuscitation Status: Full Code Discharge Diet: Cardiac Discharge Activity: Activity As Tolerated, Balance Activity w/Rest Home Medications: Aspirin [Aspirin 81 mg Chewable Tablet] 81 mg PO DAILY 02/15/17 Atorvastatin Calcium [Lipitor 20 mg Tablet] 20 mg PO DAILY 02/15/17 Gabapentin [Neurontin 300 mg Capsule] 300 mg PO BID 02/15/17 Omeprazole 40 mg PO QAM 02/15/17 Trazodone HCl [Desyrel] 100 mg PO QHS 02/15/17 Acarbose [Precose 50 mg Tablet] 50 mg PO AC PRN #60 tablet 02/18/17 Levofloxacin [Levaquin 750 mg Tablet] 750 mg PO DAILY #6 tablet 02/18/17 Metronidazole [Flagyl 500 mg Tablet] 500 mg PO Q6 #24 tablet 02/18/17 Oxycodone HCl/Acetaminophen [Percocet 10-325 mg Tablet] 1 each PO Q6 PRN #0 Additional Information: Hold antihypertensive medication until diarrhea resolves or reevaluated by the primary physician. Monitor blood pressure daily and record. History of Present Illness Patient complains of: Diarrhea History of Present Illness: LOBITO RODRÍGUEZ is a 67 year old male, with hypertension taking RODNEY inhibitor apparently developed diarrhea with abdominal cramping of 5 days duration. Diarrhea is watery in nature with no noted blood. It occurs about 10 times per day. The patient will just drink water to avoid getting dehydrated. Patient had a fever 2 days ago reportedly 104. Patient attributes to the diarrhea from eating crabs although the rest of the family did not have this symptom. There is no nausea or vomiting. No melena hematochezia or hematemesis reported. Yesterday the patient started to feel dizzy and he fell 3 times on the floor due to lightheadedness and dizziness. The last time he thinks he may have passed out. He was brought to the emergency room with systolic blood pressure in the 70s. 6 L of intravenous fluid was given and the patient's blood pressure normalized. Patient sodium was low at 128 as well as a potassium of 3.3. Patient was then referred for admission. Hospital Course Hospital Course: The patient was admitted to [facility]. The patient was begun on intravenous fluids. Renal ultrasound was obtained and was negative for obstruction. Noted cyst but without any obstruction findings to suggest hydronephrosis. With hydration the patient's creatinine normalized. His antihypertensive medication was held. In terms of the diarrhea cultures were performed. Patient began antibiotics for infectious colitis as he reports it happened after eating seafoods and crabs. Cultures remain negative but no significant improvement in the diarrhea , he has prior history of gastric bypass likely suggesting dumping syndrome and so he was tried on acarbose and the diarrhea seems to improve after 24 hours. He has a CT of the abdomen and pelvis showing mucosal thickening on the bowel suggesting colitis and therefore he was continued on antibiotics. The rest of the hospital stays unremarkable. He was eventually discharged home improved with above instructions. Physical Exam Vital Signs: Temp Pulse Resp BP Pulse Ox 97.7 F 68 18 148/73 H 100 02/18/17 07:16 02/18/17 07:16 02/18/17 07:16 02/18/17 07:16 02/18/17 07:16 Intake & Output 02/17/17 02/18/17 02/19/17 06:59 06:59 06:59 Intake Total 4934 4821 Balance 4934 4821 Weight 93.1 kg 96.3 kg General appearance: PRESENT: no acute distress, cooperative Head exam: PRESENT: normocephalic Eye exam: PRESENT: EOMI Mouth exam: PRESENT: moist, neck supple Neck exam: ABSENT: JVD Respiratory exam: PRESENT: clear to auscultation jeremías. ABSENT: rhonchi, wheezes Cardiovascular exam: PRESENT: RRR. ABSENT: gallop GI/Abdominal exam: PRESENT: hyperactive bowel sounds, soft. ABSENT: distended, tenderness Extremities exam: ABSENT: pedal edema Neurological exam: PRESENT: alert, awake, oriented to person, oriented to place , oriented to time, oriented to situation Skin exam: PRESENT: dry, warm. ABSENT: cyanosis Results Laboratory Results: 02/16/17 04:22 02/18/17 04:17 02/18/17 04:17 Sodium 140.9 Potassium 3.8 Chloride 117 H Carbon Dioxide 18 L Anion Gap 6 BUN 8 Creatinine 0.92 Est GFR ( Amer) > 60 Est GFR (Non-Af Amer) > 60 Glucose 91 Calcium 7.9 L 02/16/17 00:25 Clean Catch Midstream Urine Culture - Final NO GROWTH 2 DAYS 02/15/17 22:00 Stool - Stool - Final 02/15/17 22:00 Stool - Stool Stool Culture - Final NO SALMONELLA, SHIGELLA, CAMPYLOBACTER, OR E.COLI 0157 RECOVERED. NEGATIVE FOR SHIGA TOXINS 1&2. Impressions: Renal Ultrasound 02/15/17 00:00 IMPRESSION: Prominent parapelvic cyst in the right kidney. The study is otherwise normal. Cervical Spine CT 02/15/17 05:51 IMPRESSION: No acute findings. Moderate disc desiccation and spondylosis worse at the C5-C6 level causing [id number] spinal and foraminal canal stenoses. Head CT 02/15/17 05:51 IMPRESSION: No acute findings. Chest X-Ray 02/15/17 07:11 IMPRESSION: NO ACUTE RADIOGRAPHIC FINDING IN THE CHEST. Right IJ line. Abdomen/Pelvis CT 02/17/17 00:00 IMPRESSION: 1. Thickening of the transverse colonic wall colitis cannot be excluded. 2. Mild small-bowel distention but no evidence of obstruction. The are areas in the pelvis with air appears to be small bowel wall thickening. This may be secondary to focal enteritis. No focal inflammatory changes. There are scattered prominent mesenteric lymph nodes. Qualifiers PATEINT BEING DISCHARGED WITH ANY OF THE FOLLOWING DIAGNOSIS?: No Plan Discharge Plan: Follow-up with primary care physician in a week. Time Spent: Less than 30 Minutes
[2017-02-18] MEDS: ENOXAPARIN SODIUM INJ 30 MG/0.3 ML DISP.SYRIN SUBCUT SCH (10:00)
[2017-02-18] MEDS: GABAPENTIN 300 MG CAPSULE PO SCH (10:02)
[2017-02-18] MEDS: LEVOFLOXACIN 750 MG TABLET PO SCH (10:03)
[2017-02-18] MEDS: ASPIRIN 81 MG TABLET, CHEWABLE PO SCH (10:03)
== END 2017-02-18 11:21 | disposition home or self-care (01) | DRG 682 ==
LOC: ER 04:27 → EH 07:47 → UNDOADMIN 07:47 → EH 08:48 → 3W 15:42
PROVIDERS: ADMIT Family Medicine; ATTEND Family Medicine
PROC: 02HV33Z Insertion of Infusion Device into Superior Vena Cava, Percutaneous Approach (ICD-10-PCS; principal; 2017-02-15)
DX: N17.9 Acute kidney failure, unspecified (principal); R57.1 Hypovolemic shock; A09 Infectious gastroenteritis and colitis, unspecified; E87.1 Hypo-osmolality and hyponatremia; I95.9 Hypotension, unspecified; I25.10 Atherosclerotic heart disease of native coronary artery without angina pectoris; E66.9 Obesity, unspecified; E87.6 Hypokalemia; E11.9 Type 2 diabetes mellitus without complications; I25.2 Old myocardial infarction; Z91.81 History of falling; Z79.4 Long term (current) use of insulin; Z79.52 Long term (current) use of systemic steroids; Z98.84 Bariatric surgery status; Z79.899 Other long term (current) drug therapy; Z79.02 Long term (current) use of antithrombotics/antiplatelets
CPT/HCPCS: 36415; 70450; 71010; 72125; 74176; 76770; 80048; 80053; 81001; 82550; 82553; 82803; 82962; 83036; 83605; 83735; 84100; 84439; 84443; 84484; 85025; 85027; 85610; 87040; 87045; 87086; 87205; 87493; 93005; 93010; 96360; 99291; J0696; J1650; J3480; J3490; J7030

== ENCOUNTER 2019-03-04 09:21 | Day surgery (SDC) | payer MEDICARE ==
[~2019-03-04 09:21] MED LIST: BUPIVACAINE HCL 0.75% INJ/PF (7.5 MG/1 ML) 10 ML SDV OS PRN; KETOROLAC TROMETHAMINE 0.45% 4 DROP/0.4 ML DROPERETTE OS PRN; LIDOCAINE 4% INJ/PF (40 MG/ML) 5 ML AMPUL OS PRN; TETRACAINE HCL 0.5% OPH SOLN 4 ML OS PRN
[2019-03-04] MEDS: BESIFLOXACIN HCL 0.6% OPH SUSP 5 ML BOTTLE OS PRN ×4 (10:35→11:44)
[2019-03-04] MEDS: CYCLOPENTOLATE 0.2%/PHENYLEPHRINE 1% OPH SOLN 2 ML OS PRN ×3 (10:35→10:55)
[2019-03-04] MEDS: TROPICAMIDE 1% OPH SOLN 3 ML OS PRN ×3 (10:35→10:55)
[2019-03-04] MEDS ORDERED: MIDAZOLAM 2 MG/2 ML INJ ONE (10:57)
[2019-03-04] MEDS ORDERED: FENTANYL CITRATE INJ/PF 100 MCG/2 ML AMPUL ONE (10:57)
[2019-03-04] MEDS: DORZOLAMIDE HCL 2%/TIMOLOL MALEAT 0.5% OPH SOLN 10 ML OS PRN ×2 (11:35→11:44)
[2019-03-04] MEDS ORDERED: EPINEPHRINE INJ/PF 1 MG/1 ML AMPULE ONE (11:51)
[2019-03-04] MEDS ORDERED: LIDOCAINE 1%/PHENYLEPHRINE 1.5% 1 ML VIAL ONE (11:52)
[2019-03-04] MEDS ORDERED: CHONDR SU A NA/HYALUR INTRAOC KIT (SURGICARE) ONE (11:52)
--- NOTE | 2019-03-04 14:13 | Operative Report ---
Operative Report-[facility] Operative Report: DATE OF SURGERY: 03/04/2019 PREOPERATIVE DIAGNOSIS: CATARACT, LEFT EYE. POSTOPERATIVE DIAGNOSIS: CATARACT, LEFT EYE. PROCEDURE PERFORMED: PHACOEMULSIFICATION WITH POSTERIOR CHAMBER INTRAOCULAR LENS, LEFT EYE. Intraocular Lens Model : SN 60 WF 20.0 Total Phaco Time: 43.7 seconds SURGEON: ALEJANDRINA LOPEZ MD ANESTHESIA: TOPICAL WITH MAC. INDICATIONS FOR SURGERY: Difficultly driving at night PROCEDURE: The patient was brought to the Operating Room and placed on the operative table. Following tetracaine drops, topical anesthesia was administered. This consisted of instrument wipe pledgets soaked in a solution of 4% Xylocaine mixed with 0.75% Marcaine in a 1:2 ratio. A 2 x 1 cm pledget was placed in the superior fornix. A 1 x 1 cm pledget was placed in the inferior fornix. The eye was patched shut for 5 minutes. The patch was removed. The eye was sterilely prepped and draped in the usual manner. Lid speculum was placed in the eye. The pledgets were removed. 4-0 black silk sutures were placed around the superior and the inferior rectus muscles to be used as traction. A conjunctival peritomy was made at the 10 o'clock position. Hemostasis was obtained with bipolar cautery. A posterior limbal groove was created using a crescent knife and dissected anteriorly towards the cornea. A sharp point blade was used to create a paracentesis site at the 2 o'clock position. 0.2 cc non preserved Lidocaine was injected into the anterior chamber. A 2.4 mm keratome was used to enter the anterior chamber through the groove. Viscoelastic was injected into the anterior chamber. An anterior capsulotomy was performed using Utrata forceps in a capsulorrhexis fashion. Hydrodissection and hydrodelineation were performed. Phacoemulsification was performed in [id number] technique. Following this, the I/A unit was used to remove residual cortex. Viscoelastic was injected into the capsular bag. The Intraocular lens was placed in the capsular bag. The I/A unit was used to remove residual viscoelastic. The wound was seen to be watertight under high and low pressure, and no sutures were placed. The intraocular lens was well centered. The pressure was adjusted in the eye to normal pressure. The 4-0 black silk sutures and lid speculum were removed. The eye was shielded after Besivance and Cosopt drops were placed. The patient tolerated the procedure well and was sent to the Recovery Room in good condition.
--- NOTE | 2019-03-04 14:14 | PDOC DISCHARGE SUMMARY ---
Discharge Summary[facility] Discharge Summary: DATE: 03/04/2019 FINAL DIAGNOSIS: CATARACT, LEFT EYE PROCEDURE: Cataract extraction with intraocular lens implant left eye HOSPITAL COURSE: The patient will be discharged to home. The patient is instructed to resume preoperative medications, take Tylenol as needed for discomfort, to keep the eye shielded, They should use the prescribed antibiotic, NSAID, and steroid at 3 PM and 8 PM, and to follow up in my office in 1 day.
== END 2019-03-04 12:25 | disposition home or self-care (01) ==
LOC: SC 09:21
PROVIDERS: ATTEND Ophthalmology
DX: H25.813 Combined forms of age-related cataract, bilateral (principal); H57.03 Miosis; H43.813 Vitreous degeneration, bilateral; H04.123 Dry eye syndrome of bilateral lacrimal glands; H01.00A Unspecified blepharitis right eye, upper and lower eyelids; H01.00B Unspecified blepharitis left eye, upper and lower eyelids; H40.003 Preglaucoma, unspecified, bilateral; J44.9 Chronic obstructive pulmonary disease, unspecified; D64.9 Anemia, unspecified; I10 Essential (primary) hypertension; K21.9 Gastro-esophageal reflux disease without esophagitis; F17.210 Nicotine dependence, cigarettes, uncomplicated; Z85.828 Personal history of other malignant neoplasm of skin; Z79.82 Long term (current) use of aspirin
CPT/HCPCS: 66984; 00142; V2632; J2250; J3490 ×4; A9270; J0171; J3010; J2370; 142

== ENCOUNTER 2019-04-08 08:49 | Day surgery (SDC) | payer MEDICARE ==
[~2019-04-08 08:49] MED LIST changes: +BUPIVACAINE HCL 0.75% INJ/PF (7.5 MG/1 ML) 10 ML SDV OD PRN; -BUPIVACAINE HCL 0.75% INJ/PF (7.5 MG/1 ML) 10 ML SDV OS PRN; +CHONDR SU A NA/HYALUR INTRAOC KIT (SURGICARE) ONE; +EPINEPHRINE INJ/PF 1 MG/1 ML AMPULE ONE; +KETOROLAC TROMETHAMINE 0.45% 4 DROP/0.4 ML DROPERETTE OD PRN; -KETOROLAC TROMETHAMINE 0.45% 4 DROP/0.4 ML DROPERETTE OS PRN; +LIDOCAINE 1%/PHENYLEPHRINE 1.5% 1 ML VIAL ONE; +LIDOCAINE 4% INJ/PF (40 MG/ML) 5 ML AMPUL OD PRN; -LIDOCAINE 4% INJ/PF (40 MG/ML) 5 ML AMPUL OS PRN; -TETRACAINE HCL 0.5% OPH SOLN 4 ML OS PRN
[2019-04-08] MEDS: TETRACAINE HCL 0.5% OPH SOLN 4 ML OD PRN ×3 (09:51→10:34)
[2019-04-08] MEDS: TROPICAMIDE 1% OPH SOLN 15 ML OD PRN ×3 (09:52→10:13)
[2019-04-08] MEDS: CYCLOPENTOLATE 0.2%/PHENYLEPHRINE 1% OPH SOLN 2 ML OD PRN ×3 (09:52→10:13)
[2019-04-08] MEDS: BESIFLOXACIN HCL 0.6% OPH SUSP 5 ML BOTTLE OD PRN ×4 (09:52→10:59)
[2019-04-08] MEDS ORDERED: MIDAZOLAM 2 MG/2 ML INJ ONE (10:12)
[2019-04-08] MEDS ORDERED: FENTANYL CITRATE INJ/PF 100 MCG/2 ML AMPUL ONE (10:13)
[2019-04-08] MEDS: DORZOLAMIDE HCL 2%/TIMOLOL MALEAT 0.5% OPH SOLN 10 ML OD PRN ×2 (10:59)
--- NOTE | 2019-04-08 12:50 | Operative Report ---
Operative Report-[facility] Operative Report: DATE OF SURGERY: 04/08/2019 PREOPERATIVE DIAGNOSIS: 1. CATARACT, RIGHT EYE 2. PUPIL MIOSIS, RIGHT EYE POSTOPERATIVE DIAGNOSIS: 1. CATARACT, RIGHT EYE 2. PUPIL MIOSIS, EIGHT EYE PROCEDURE PERFORMED: COMPLEX CATARACT EXTRACTION WITH INTRAOCULAR LENSES, RIGHT EYE Intraocular Lens Model: SN 6 0 WF 20.0 Total Phaco Time: 4.49 CDE SURGEON: ALEJANDRINA LOPEZ MD ANESTHESIA: Topical with MAC plus intraocular phenylephrine and lidocaine INDICATIONS FOR SURGERY: Difficulty focusing for driving PROCEDURE: The patient was brought to the operating room placed on operating table. Topical anesthesia was administered. This consisted of instrument wipe pledgets soaked in a solution of 4% Xylocaine mixed with 0.75% Marcaine in a 1:2 ratio. A 2 x 1 cm pledget was placed in the superior fornix. A 1 x 1 cm pledget was placed in the inferior fornix. The eye was patched for 5 minutes. The patch and pledgets were removed. The eye was sterilely prepped and draped in the usual manner. A lid speculum was placed in the eye. A 4-0 black silk suture was placed around the superior and inferior rectus muscle to use as traction. A conjunctival peritomy was made at the 10 o'clock position. Hemostasis was obtained with bipolar cautery. A posterior limbal groove was created using a crescent knife and dissected anteriorly towards the cornea. Sharp point blade was used to create a paracentesis site at the 2 o'clock position. A 2.4 mm keratome was used into the anterior chamber through the groove. Then 0.5 mL of 1% non-preserved lidocaine was injected into the anterior chamber. Viscoelastic was injected into the anterior chamber. Pupil dilation was approximately 4.5 mm. A Malyugin Ring was placed stabilizing the iris. An anterior capsulotomy was performed using Utrata forceps in a capsulorrhexis fashion. Hydrodissection and hydrodelineation was performed. Phacoemulsification was performed in the divide and conquer technique. Following this, that I/A unit was used to remove residual cortex. Viscoelastic was injected into the capsular bag. Intraocular lens were placed in the capsular bag. The Malyugin ring haptics were removed and the ring was removed from the eye. The I/A unit was used to remove residual viscoelastic. The wound was seen to be watertight under high and low pressure and no sutures were placed. The 4-0 black silk sutures and lid speculum were removed. The eye was shielded after Besivance and Cosopt drops were placed. The patient tolerated the procedure well and was sent to recovery room in good condition.
== END 2019-04-08 11:45 | disposition home or self-care (01) ==
LOC: SC 08:49
PROVIDERS: ATTEND Ophthalmology
DX: H25.811 Combined forms of age-related cataract, right eye (principal); H57.03 Miosis; Z96.1 Presence of intraocular lens; J44.9 Chronic obstructive pulmonary disease, unspecified; I10 Essential (primary) hypertension; K21.9 Gastro-esophageal reflux disease without esophagitis
CPT/HCPCS: 00142; 66982; V2632; J2250; J3490 ×4; A9270; J0171; J3010; J2370; 142

== ENCOUNTER → 2020-05-11 | Outpatient (CLI) | payer MEDICARE, OTHER ==
--- NOTE | 2020-05-11 18:00 | XCELERA REPORT ---
[address] [address] Transthoracic Echocardiogram Report Name: LOBITO RODRÍGUEZ Age: 70 yrs Gender: Male : 1950 Patient Status: Outpatient Patient Location: Study Date: 05/11/2020 08:09 AM History: CAD HTN Height: 74 in Weight: 240 lb BSA: 2.3 m2 Procedure: A complete two-dimensional transthoracic echocardiogram was performed (2D, M-mode, spectral and color flow Doppler). The study was technically difficult with many images being suboptimal in quality. Reason For Study: AV STENOSIS, CAD, HTN Previous Evaluation: No previous studies were available. History: CAD HTN . Ordering Physician: STANISLAW CELIS Performed By: Jesús Elder Interpretation Summary Left ventricular systolic function is normal. The Ejection Fraction estimate is 60-65% The right ventricle is normal in size and function. There is a trace amount of mitral regurgitation There is mild aortic stenosis There is a trace amount of aortic regurgitation There is a trace amount of tricuspid regurgitation There is no pericardial effusion. MMode/2D Measurements & Calculations RVDd: 5.0 cm LVIDd: 5.6 cm FS: 38.7 % Ao root diam: 4.1 cm IVSd: 1.2 cm LVIDs: 3.5 cm EDV(Teich): Ao root area: LVPWd: 1.2 cm 156.5 ml 13.5 cm2 ESV(Teich): 49.5 mlLA dimension: 5.4 cm EF(Teich): 68.3 % LVOT diam: 2.0 cmLVLd ap4: 8.2 cm SV(MOD-sp4): LVOT area: EDV(MOD-sp4): 77.0 ml 107.0 ml 3.3 cm2 LVLs ap4: 6.6 cm ESV(MOD-sp4): 30.0 ml EF(MOD-sp4): 72.0 % Doppler Measurements & Calculations MV E max virgen: MV P1/2t max virgen: Ao V2 max: AI max virgen: 114.5 cm/sec 116.7 cm/sec 235.4 cm/sec 432.7 cm/sec MV A max virgen: MV P1/2t: 76.0 msec Ao max PG: AI max P.0 cm/sec MVA(P1/2t): 2.9 cm2 22.2 mmHg 74.9 mmHg MV E/A: 1.5 MV dec slope: Ao V2 mean: AI dec slope: 449.9 cm/sec2 160.0 cm/sec 219.7 cm/sec2 MV dec time: 0.16 secAo mean PG: AI P1/2t: 12.0 mmHg 576.8 msec Ao V2 VTI: 51.9 cm RADHA(I,D): 2.1 cm2 RADHA(V,D): 1.9 cm2 LV V1 max PG: SV(LVOT): 108.9 ml PA V2 max: TR max virgen: 7.6 mmHg 71.7 cm/sec 293.2 cm/sec LV V1 mean PG: PA max PG: TR max P.1 mmHg 2.1 mmHg 34.4 mmHg LV V1 max: 137.5 cm/sec LV V1 mean: 80.5 cm/sec LV V1 VTI: 33.1 cm AV P1/2t-pr_phl: MV P1/2t-pr_phl: 576.8 msec 76.0 msec Left Ventricle The left ventricle is borderline dilated. There is moderate concentric left ventricular hypertrophy. Left ventricular systolic function is normal. The Ejection Fraction estimate is 60-65%. Doppler measurements suggest pseudonormalized left ventricular relaxation, which is associated with grade II/IV or mild to moderate diastolic dysfunction. Regional wall motion abnormalities cannot be excluded due to limited visualization. Right Ventricle The right ventricle is normal in size and function. Atria The right atrium is normal. The left atrium is mildly dilated. The interatrial septum is intact with no evidence for an atrial septal defect. There is no Doppler evidence for an interatrial shunt. Mitral Valve There is mild mitral leaflet calcification. There is no mitral valve stenosis. There is a trace amount of mitral regurgitation. Aortic Valve The aortic valve is sclerotic and shows some degree of functional abnormality. The aortic valve is moderately calcified. There is mild aortic stenosis. Mesn PG=12 mm Hg Vmax=2.36 m/s RADHA= 2.01 cm2(VTI). There is a trace amount of aortic regurgitation. Tricuspid Valve The tricuspid valve is normal in structure and function. There is no tricuspid stenosis. There is a trace amount of tricuspid regurgitation. There is mild to moderate pulmonary hypertension by echo. Right ventricular systolic pressure is estimated to be elevated at 40-50mmHg. Pulmonic Valve The pulmonic valve is not well visualized. There is no pulmonic valvular stenosis. There is a trace amount of pulmonic regurgitation. Great Vessels The aortic root is mildly dilated. 4.1 cm. The inferior vena cava appeared dilated and decreased < 50% with respiration (RAP 15-20 mmHg). Effusions There is no pericardial effusion. : STANISLAW CELIS Anil
== END ==
LOC: SP 07:53
PROVIDERS: ATTEND Internal Medicine
DX: I10 Essential (primary) hypertension (principal); I35.0 Nonrheumatic aortic (valve) stenosis; I25.10 Atherosclerotic heart disease of native coronary artery without angina pectoris
CPT/HCPCS: 93306